=== PATIENT | male | born 1965 | race Caucasian/White ===

== ENCOUNTER 2017-12-15 22:32 | Emergency (ER) | payer OTHER ==
[2017-12-15 22:40] VITALS: BP 139/85; PULSE 96; RESP 20; TEMP 98.2
--- NOTE | 2017-12-15 23:02 | ED ---
General Adult HPI - General Source: patient, family, RN notes reviewed Mode of arrival: ambulatory Limitations: no limitations <Jens Morris - Last Filed: 12/15/17 23:38> <Peggy Altman - Last Filed: 12/16/17 00:31> - General Chief complaint: Fall Stated complaint: fall Time Seen by Provider: 12/15/17 22:43 - History of Present Illness Initial comments: Patient 51-year-old male presented to the emergency room today with chief complaint of slip and fall occurred just prior to arrival. She does admit that he was on a hardwood floor when he slipped falling on the right side of the ribs. He admits to pain locally to the area. States was no head injury or loss consciousness. States he does not take any blood thinners. Patient admits to pain to the right ribs worse with certain movements. He denies any other complaints or injury. (Jens Morris) - Related Data Previous Rx's Medication Instructions Recorded Ibuprofen [Motrin] 800 mg PO Q6HR #30 tab 12/15/17 Allergies Allergy/AdvReac Type Severity Reaction Status Date / Time No Known Allergies Allergy Verified 12/15/17 22:40 Review of Systems ROS Other: All systems not noted in ROS Statement are negative. <Jens Morris - Last Filed: 12/15/17 23:38> ROS Other: All systems not noted in ROS Statement are negative. <Peggy Altman P - Last Filed: 12/16/17 00:31> ROS Statement: Those systems with pertinent positive or pertinent negative responses have been documented in the HPI. Past Medical History Past Medical History: Diabetes Mellitus History of Any Multi-Drug Resistant Organisms: None Reported Past Surgical History: Tonsillectomy Past Psychological History: No Psychological Hx Reported Smoking Status: Former smoker Past Alcohol Use History: None Reported Past Drug Use History: None Reported <Jens Morris - Last Filed: 12/15/17 23:38> General Exam Limitations: no limitations <Jens Morris - Last Filed: 12/15/17 23:38> <Peggy Altman P - Last Filed: 12/16/17 00:31> - General Exam Comments Initial Comments: General: The patient is awake and alert, in no distress, and does not appear acutely ill. Eye: Pupils are equal, round and reactive to light. Extra-ocular movements are intact. No nystagmus. There is normal conjunctiva bilaterally. No signs of icterus. Ears, nose, mouth and throat: There are moist mucous membranes and no oral lesions. Neck: The neck is supple, there is no tenderness or JVD. Cardiovascular: There is a regular rate and rhythm. No murmur, rub or gallop is appreciated. Respiratory: Lungs are clear to auscultation, respirations are non-labored, breath sounds are equal. No wheezes, stridor, rales, or rhonchi. Musculoskeletal: Normal appearance of cervical, thoracic and lumbar spine. No step-off deformity midline of the spinous processes. Patient does have tenderness in posterior mid right ribs. Sensation intact. Strength 5/5. Pulses equal bilaterally 2+. Neurological: A&O x 3. CN II-XII intact, There are no obvious motor or sensory deficits. Coordination appears grossly intact. Speech is normal. Skin: Skin is warm and dry and no rashes or lesions are noted. Psychiatric: Cooperative, appropriate mood & affect, normal judgment. (Jens Morris) Vital Signs 12/15/17 22:36 Temperature 98.2 F Pulse Rate 96 Respiratory 20 Rate Blood Pressure 139/85 O2 Sat by Pulse 99 Oximetry Medical Decision Making <Jens Morris - Last Filed: 12/15/17 23:38> <Peggy Altman - Last Filed: 12/16/17 00:31> - Medical Decision Making Patient reexamined at this time shows no signs of distress. Patient chest x- ray is negative for any acute abnormalities. Was discussed about a nondisplaced rib fracture. Patient is advised to brace himself for any coughing , sneezing. Patient advised Tylenol/Motrin for pain. He is advised follow-up the family physician or return here to the emergency room if any symptoms increase or worsen. Patient states understanding and is in agreement. (Jens Morris) I was available for consultation in the emergency department. The history and physical exam were done by the midlevel provider. I was consulted for this patient's care. I reviewed the case with the midlevel provider and based on their presentation of the patient, I agree with the assessment, medical decision making and plan of care as documented. (Peggy Altman) Disposition Is patient prescribed a controlled substance at d/c from ED?: No Time of Disposition: 23:40 <Jens Morris - Last Filed: 12/15/17 23:38> <Peggy Altman - Last Filed: 12/16/17 00:31> Clinical Impression: Fracture, rib Disposition: HOME SELF-CARE Condition: Good Instructions: Rib Fracture (ED) Additional Instructions: Please use medication as discussed. Please follow-up with family doctor in the next 2-5 days of symptoms have not improved. Please return to emergency room if the symptoms increase or worsen or for any other concerns. Prescriptions: Ibuprofen [Motrin] 800 mg PO Q6HR #30 tab Referrals: None,Stated [Primary Care Provider] - 1-2 days
--- NOTE | 2017-12-15 23:07 | XR ---
EXAMINATION TYPE: XR chest 2V DATE OF EXAM: 12/15/2017 COMPARISON: NONE HISTORY: Rib pain TECHNIQUE: Frontal and lateral views of the chest are obtained. FINDINGS: Heart and mediastinum are normal. Lungs are clear. Diaphragm is normal. Bony thorax appear s normal. IMPRESSION: Normal chest
== END 2017-12-15 23:43 | disposition home or self-care (01) ==
LOC: EC 22:32
DX: S22.31XA Fracture of one rib, right side, initial encounter for closed fracture (principal); Z87.891 Personal history of nicotine dependence; W01.0XXA Fall on same level from slipping, tripping and stumbling without subsequent striking against object, initial encounter; Y92.009 Unspecified place in unspecified non-institutional (private) residence as the place of occurrence of the external cause
CPT/HCPCS: 71046; 99283